=== PATIENT | male | born 1990 | race African-American/Black ===

== ENCOUNTER 2020-11-09 18:07 | Emergency (ER) | payer OTHER ==
[~2020-11-09] VITALS: Ht 190.5 cm; Wt 75.8 kg
[2020-11-09 19:11] LABS: URINE BILIRUBIN NEGATIVE (Negative); URINE BLOOD TRACE (Negative); URINE CLARITY CLEAR; URINE COLOR YELLOW; URINE GLUCOSE-RANDOM* NEGATIVE (Negative); URINE KETONES NEGATIVE (Negative); URINE NITRITE-REFLEX NEGATIVE (Negative); URINE PROTEIN (DIPSTICK) TRACE (Negative); URINE SPECIFIC GRAVITY 1.025 (1.005-1.035); URINE UROBILINOGEN 0.2 E.U./dl (0.2-1.0)
[2020-11-09 19:16] LABS: URINE LEUKOCYTES-REFLEX 1+ (Negative)
[2020-11-09 19:31] LABS: BACTERIA-REFLEX None Seen /HPF (None Seen); CASTS None Seen /LPF (None Seen); CRYSTALS None Seen /LPF (None Seen); MUCUS 0-3 Light strn/LPF (None Seen); SQUAMOUS None Seen /LPF (0-3); URINE RBC 0-2 Rare /HPF (0-2); URINE WBC-REFLEX >25 Many /HPF (0-5)
[2020-11-09] MEDS ORDERED: DOXYCYCLINE 10100 MG PO (19:45)
[2020-11-09 20:14] VITALS: BP 128/68
== END 2020-11-09 20:14 | disposition home or self-care (01) ==
LOC: ER 18:07
PROVIDERS: Nurse Practitioner
DX: R36.9 Urethral discharge, unspecified (principal); Z11.3 Encounter for screening for infections with a predominantly sexual mode of transmission; F17.200 Nicotine dependence, unspecified, uncomplicated